=== PATIENT | male | born 1970 | race Caucasian/White ===

== ENCOUNTER → 2018-11-25 13:28 | Outpatient (POV) | payer OTHER, SELFPAY ==
[2018-11-25 13:48] VITALS: BP 169/98; PULSE 121; RESP 18; O2SAT 98; BMI 28.7
--- NOTE | 2018-11-25 16:15 | HMH.PMCON ---
Assessment and Plan (1) Degenerative disc disease, lumbar Current visit: Yes Status: Chronic Category: Medical Code(s): M51.36 - Other intervertebral disc degeneration, lumbar region (2) Degenerative joint disease (DJD) of lumbar spine Current visit: Yes Status: Acute Category: Medical Code(s): M47.816 - Spondylosis without myelopathy or radiculopathy, lumbar region - Assessment and plan all Dx Assessment and Plan for all problems:: I believe the patient would benefit from a spinal nerve stimulator. We will schedule the patient for psychological evaluation and follow-up with him after that appointment. The patient is not on anticoagulation therapy. We had a thorough discussion of expectations of the stimulator. He understands that stimulator may not relieve all of his pain, but he would like to try to get some relief. He is been instructed to call the office if he has any concerns prior to his next appointment. He will continue with home stretching program in ENT. Dr. Leyva has reviewed this note and agrees with this plan of care. This note was dictated using voice recognition software and may contain errors or omissions HPI - Data of Consult Patient: new to practice Consult date: 11/25/18 Requesting Physician: Jania Blanco APRN Primary Care Provider: Husam De Santiago - Consult Narrative Reason for consult: Back pain History of present illness: Mr. Flanagan is a 48 year old male who presents today for referral. Patient complains of low back pain that is radiating to his left groin left leg area. He also reports that the pain is wrapping around his beltline bilateral sides. Patient says he has had this pain for the year and that it has gotten worse over the last 2 months. He also complains of neck pain that radiates to his arms. At this time he says his lower back pain is worse than the other pain. He rates his pain a 9 out of 10 today. He says that the pain is driving me crazy . Patient does report a history of cervical fusion, lumbar fusion and discectomy. He says that this did him some relief. Also states that he uses a TENS unit. The patient has tried anti-inflammatories at, with stretching program. He uses ice and heat. The patient is currently taking diazepam 2 mg 1 p.o. 3 times daily and tramadol 50 mg by his primary care physician. Patient is interested in discussion of a neurostimulator. CC: Jania Blanco APRN [facility] History Medical History: Denies:: Cancer, Diabetes Mellitus Type 1, Diabetes Mellitus Type 2, MRSA *Have you ever received a pneumonia vaccine?: No *Have you received a flu vaccine this season?: No Amputation: Yes Fractures: Yes - *Social History Smoking Status: Current every day smoker Tobacco Type: cigarettes # Packs/Day (cigarettes): 1 Alcohol Intake: never *Occupational Status:: other Housing: house Household Members: spouse *Travel in the last 8 weeks: None - Psychiatric History Expresses thoughts of harming self/others: None Suicide Plan Description: No Plan Family Hx:: Unable to obtain Review of Systems - Allergic/Immunologic Comments: ROS General: no recent weight change, no fever, no sleep disturbances Respiratory: no cough, no shortness of air, no recurring pulmonary infections Cardiovascular/Peripheral Vascular: No chest pain, No palpitations, no edema, no shortness of breath. Gastrointestinal: no incontinence, normal bowel movements reported Genitourinary: no incontinence Musculoskeletal neck pain, leg pain, arm pain, neck pain Psychiatric: normal mood/ affect, [denies depression], [denies anxiety] Neurological: [denies weakness in extremities], [denies balance issues] Meds Home Medications Medication Instructions Recorded Confirmed Type Bupropion HBr [Aplenzin] 300 mg PO DAILY 11/25/18 11/25/18 History Cyclobenzaprine HCl 10 mg PO DAILY 11/25/18 11/25/18 History [Cyclobenzaprine 10mg Tab] Nortriptyline HCl 50 mg
--- NOTE | 2018-11-25 16:19 | P.CONS_ITS ---
Assessment and Plan (1) Degenerative disc disease, lumbar Current visit: Yes Status: Chronic Category: Medical Code(s): M51.36 - Other intervertebral disc degeneration, lumbar region (2) Degenerative joint disease (DJD) of lumbar spine Current visit: Yes Status: Acute Category: Medical Code(s): M47.816 - Spondylosis without myelopathy or radiculopathy, lumbar region - Assessment and plan all Dx Assessment and Plan for all problems:: I believe the patient would benefit from a spinal nerve stimulator. We will schedule the patient for psychological evaluation and follow-up with him after that appointment. The patient is not on anticoagulation therapy. We had a thorough discussion of expectations of the stimulator. He understands that stimulator may not relieve all of his pain, but he would like to try to get some relief. He is been instructed to call the office if he has any concerns prior to his next appointment. He will continue with home stretching program in ENT. Dr. Leyva has reviewed this note and agrees with this plan of care. This note was dictated using voice recognition software and may contain errors or omissions HPI - Data of Consult Patient: new to practice Consult date: 11/25/18 Requesting Physician: Jania Blanco APRN Primary Care Provider: Husam De Santiago - Consult Narrative Reason for consult: Back pain History of present illness: Mr. Flanagan is a 48 year old male who presents today for referral. Patient complains of low back pain that is radiating to his left groin left leg area. He also reports that the pain is wrapping around his beltline bilateral sides. Patient says he has had this pain for the year and that it has gotten worse over the last 2 months. He also complains of neck pain that radiates to his arms. At this time he says his lower back pain is worse than the other pain. He rates his pain a 9 out of 10 today. He says that the pain is driving me crazy . Patient does report a history of cervical fusion, lumbar fusion and discectomy. He says that this did him some relief. Also states that he uses a TENS unit. The patient has tried anti-inflammatories at, with stretching program. He uses ice and heat. The patient is currently taking diazepam 2 mg 1 p.o. 3 times daily and tramadol 50 mg by his primary care physician. Patient is interested in discussion of a neurostimulator. CC: Jania Blanco APRN [facility] History Medical History: Denies:: Cancer, Diabetes Mellitus Type 1, Diabetes Mellitus Type 2, MRSA *Have you ever received a pneumonia vaccine?: No *Have you received a flu vaccine this season?: No Amputation: Yes Fractures: Yes - *Social History Smoking Status: Current every day smoker Tobacco Type: cigarettes # Packs/Day (cigarettes): 1 Alcohol Intake: never *Occupational Status:: other Housing: house Household Members: spouse *Travel in the last 8 weeks: None - Psychiatric History Expresses thoughts of harming self/others: None Suicide Plan Description: No Plan Family Hx:: Unable to obtain Review of Systems - Allergic/Immunologic Comments: ROS General: no recent weight change, no fever, no sleep disturbances Respiratory: no cough, no shortness of air, no recurring pulmonary infections Cardiovascular/Peripheral Vascular: No chest pain, No palpitations, no edema, no shortness of breath. Gastrointestinal: no incontinence, normal bowel movements reported Genitourinary: no incontinence Musculoskeletal neck pain, leg pain, arm pain, neck pain Psychiatric: normal mood/ affect, [denies d
== END ==
PROVIDERS: PCP Family Medicine; Visit Provider Clinical Nurse Specialist Family Health
DX: M51.16 Intervertebral disc disorders with radiculopathy, lumbar region (principal); M47.816 Spondylosis without myelopathy or radiculopathy, lumbar region
CPT/HCPCS: 99202

== ENCOUNTER → 2019-05-01 10:56 | Outpatient (POV) | payer OTHER, SELFPAY ==
[2019-05-01 11:05] VITALS: BP 129/87; PULSE 115; RESP 18; O2SAT 99; BMI 29.0
--- NOTE | 2019-05-01 12:55 | HMH.PAINSOAP ---
[facility] Pain Management SOAP Note Subjective:: Patient is a pleasant 49-year-old white male who presents today for follow-up after a psychological evaluation for possible intrathecal pain pump trial. Patient's been treated for low back pain with lumbar radiculopathy symptoms. Complains of low back pain with radiation into his left groin as well as left leg and left foot. He says he has severe numbness and tingling into his legs. He also reports pain into his neck and arms. Patient says he has had this pain ongoing for many years. He says he has tried oral medications, however, they eventually became ineffective for his pain. He says he is unable to stand for longer than 5 minutes without developing severe pain. He describes his pain as constant aching in nature. He has undergone multiple conservative therapies of injective therapy, physical therapy for greater than 6 weeks, ice and heat therapies, as well as a TENS unit. He is with a home stretching program and anti-inflammatories. Patient is here today to discuss soft psychological evaluation. He rates his pain a 10 out of 10 today. Review of Systems General: No recent weight changes, no fever, no sleep disturbances Respiratory: No cough, no shortness of air, no recurring pulmonary infections Cardiovascular/peripheral vascular: No chest pain, no palpitations, no edema, no shortness of breath Gastrointestinal: No new onset incontinence, normal bowel movements reported Genitourinary: No new onset incontinence Musculoskeletal: Back pain, leg pain, arm pain Psychiatric: Normal mood/affect Neurological: [Denies weakness in extremities], [denies balance issues] Objective:: Physical exam General: Alert and oriented x3, no acute distress, pleasant and cooperative, [on room air] Lungs: Respirations even and unlabored, symmetrical chest expansion Eyes: PERRL Musculoskeletal: Flexion and extension of cervical and lumbar spine somewhat guarded secondary to pain, deep tendon reflexes normal, strength in upper and lower extremities [5/5], [abnormal gait noted] Neurological: Speech clear, interface control officer equal, no gross sensory deficit Assessment:: Degenerative disc disease lumbar spine with lumbar radiculopathy symptoms, neck pain with cervical radiculopathy symptoms Plan:: Patient psychological evaluation deemed the patient appropriate for intrathecal pain pump trial. He is not on any anticoagulation therapy. He has tried and failed conservative therapies. We will schedule him for intrathecal pain pump trial and see him back in the clinic following his trial to reassess his symptoms. He has been instructed to contact the clinic if he has any concerns before his next appointment. Dr. Leyva has reviewed this note and agrees with this plan of care. This note was dictated using voice recognition software and make contain errors or omissions. [facility] History Medical History: Denies:: Cancer, Diabetes Mellitus Type 1, Diabetes Mellitus Type 2, MRSA *Have you ever received a pneumonia vaccine?: Yes *Have you received a flu vaccine this season?: Yes Amputation: Yes Fractures: Yes - *Social History Smoking Status: Current every day smoker Tobacco Type: cigarettes # Packs/Day (cigarettes): 1 Alcohol Intake: never *Occupational Status:: other Housing: house Household Members: spouse *Travel in the last 8 weeks: None Family Hx:: Unable to obtain
--- NOTE | 2019-05-01 12:58 | P.CONS_ITS ---
[facility] Pain Management SOAP Note Subjective:: Patient is a pleasant 49-year-old white male who presents today for follow-up after a psychological evaluation for possible intrathecal pain pump trial. Patient's been treated for low back pain with lumbar radiculopathy symptoms. Complains of low back pain with radiation into his left groin as well as left leg and left foot. He says he has severe numbness and tingling into his legs. He also reports pain into his neck and arms. Patient says he has had this pain ongoing for many years. He says he has tried oral medications, however, they eventually became ineffective for his pain. He says he is unable to stand for longer than 5 minutes without developing severe pain. He describes his pain as constant aching in nature. He has undergone multiple conservative therapies of injective therapy, physical therapy for greater than 6 weeks, ice and heat therapies, as well as a TENS unit. He is with a home stretching program and anti-inflammatories. Patient is here today to discuss soft psychological evaluation. He rates his pain a 10 out of 10 today. Review of Systems General: No recent weight changes, no fever, no sleep disturbances Respiratory: No cough, no shortness of air, no recurring pulmonary infections Cardiovascular/peripheral vascular: No chest pain, no palpitations, no edema, no shortness of breath Gastrointestinal: No new onset incontinence, normal bowel movements reported Genitourinary: No new onset incontinence Musculoskeletal: Back pain, leg pain, arm pain Psychiatric: Normal mood/affect Neurological: [Denies weakness in extremities], [denies balance issues] Objective:: Physical exam General: Alert and oriented x3, no acute distress, pleasant and cooperative, [on room air] Lungs: Respirations even and unlabored, symmetrical chest expansion Eyes: PERRL Musculoskeletal: Flexion and extension of cervical and lumbar spine somewhat guarded secondary to pain, deep tendon reflexes normal, strength in upper and lower extremities [5/5], [abnormal gait noted] Neurological: Speech clear, store coordinator equal, no gross sensory deficit Assessment:: Degenerative disc disease lumbar spine with lumbar radiculopathy symptoms, neck pain with cervical radiculopathy symptoms Plan:: Patient psychological evaluation deemed the patient appropriate for intrathecal pain pump trial. He is not on any anticoagulation therapy. He has tried and failed conservative therapies. We will schedule him for intrathecal pain pump trial and see him back in the clinic following his trial to reassess his symptoms. He has been instructed to contact the clinic if he has any concerns before his next appointment. Dr. Leyva has reviewed this note and agrees with this plan of care. This note was dictated using voice recognition software and make contain errors or omissions. [facility] History Medical History: Denies:: Cancer, Diabetes Mellitus Type 1, Diabetes Mellitus Type 2, MRSA *Have you ever received a pneumonia vaccine?: Yes *Have you received a flu vaccine this season?: Yes Amputation: Yes Fractures: Yes - *Social History Smoking Status: Current every day smoker Tobacco Type: cigarettes # Packs/Day (cigarettes): 1 Alcohol Intake: never *Occupational Status:: other Housing: house Household Members: spouse *Travel in the last 8 weeks: None Family Hx:: Unable to obtain
== END ==
PROVIDERS: PCP Family Medicine; Visit Provider Clinical Nurse Specialist Family Health
DX: M54.16 Radiculopathy, lumbar region (principal); M50.30 Other cervical disc degeneration, unspecified cervical region
CPT/HCPCS: 99212